=== PATIENT | female | born 1985 | race Caucasian/White ===

== ENCOUNTER 2016-09-30 14:55 | Emergency (ER) | payer SELFPAY ==
[2016-09-30] MEDS ORDERED: IBUPROFEN 600 MG TABLET PO ONE (15:06)
--- NOTE | 2016-09-30 15:06 | ER Document Report ---
ED Medical Screen (RME) - General Stated Complaint: MOUTH PAIN Time seen by provider: 15:04 Mode of Arrival: Ambulatory Information source: Patient Notes: 31-year-old female presents to ED for left jaw pain for 3 days. She states that she has upper jaw left side pain. Last menstrual period 09/06/2016 I have greeted and performed a rapid initial assessment of this patient. A comprehensive ED assessment and evaluation of the patient, analysis of test results and completion of medical decision making process will be conducted by an additional ED providers. TRAVEL OUTSIDE OF THE [place] IN LAST 30 DAYS: No - Related Data Allergies/Adverse Reactions: No Known Allergies Allergy (Verified 09/30/16 15:03) Past Medical History - Past Medical History Cardiac Medical History: Reports: Hx Hypertension Neurological Medical History: Reports: Hx Migraine Renal/ Medical History: Denies: Hx Ectopic , Hx Ovarian Cysts Psychiatric Medical History: Reports: Hx Anxiety Past Surgical History: Reports: Hx Section - Immunizations Immunizations up to date: Yes Hx Diphtheria, Pertussis, Tetanus Vaccination: Yes
[2016-09-30 15:07] VITALS: BP 132/77
--- NOTE | 2016-09-30 16:33 | ER Document Report ---
ED General - General Chief Complaint: Mouth Problem Stated Complaint: MOUTH PAIN Mode of Arrival: Ambulatory Notes: This is a 31-year-old female with a history of hypertension that presents today with 3 day history of left upper maxillary pain. She describes pain as sharp 8 out of 10 in the morning with radiation to the left ear. She currently denies pain after giving a dose of ibuprofen here in the emergency department. Denies nausea vomiting fever or chills. Denies dysphagia and odynophagia. Denies shortness of breath. TRAVEL OUTSIDE OF THE [place] IN LAST 30 DAYS: No - Related Data Allergies/Adverse Reactions: No Known Allergies Allergy (Verified 09/30/16 15:03) Past Medical History - General Information source: Patient - Social History Smoking Status: Unknown if Ever Smoked Chew tobacco use (# tins/day): No Frequency of alcohol use: None Drug Abuse: None Family History: Reviewed & Not Pertinent Patient has suicidal ideation: No Patient has homicidal ideation: No - Past Medical History Cardiac Medical History: Reports: Hx Hypertension Neurological Medical History: Reports: Hx Migraine Renal/ Medical History: Denies: Hx Ectopic , Hx Ovarian Cysts, Hx Peritoneal Dialysis Psychiatric Medical History: Reports: Hx Anxiety Past Surgical History: Reports: Hx Section - Immunizations Immunizations up to date: Yes Hx Diphtheria, Pertussis, Tetanus Vaccination: Yes Review of Systems - Review of Systems Constitutional: denies: Chills, Fever EENT: See HPI Cardiovascular: No symptoms reported Respiratory: No symptoms reported Gastrointestinal: No symptoms reported Genitourinary: No symptoms reported Female Genitourinary: No symptoms reported Musculoskeletal: No symptoms reported Skin: No symptoms reported Hematologic/Lymphatic: No symptoms reported Neurological/Psychological: No symptoms reported Physical Exam - Vital signs Vitals: Temp Pulse BP Pulse Ox 97.9 F 79 132/77 H 100 09/30/16 15:00 09/30/16 15:00 09/30/16 15:00 09/30/16 15:00 - General General appearance: Appears well In distress: None - HEENT Head: Normocephalic, Atraumatic Eyes: Normal Conjunctiva: Normal. No: Injected Tympanic membrane: Normal Sinus: Normal, Frontal - Nontender, Maxillary - Nontender Mucous membranes: Moist Teeth diagram: 1 - Dental caries 2 - Dental caries Pharynx: No: Erythema, Exudate, Peritonsillar abscess, Retropharyngeal abscess, Tonsillar hypertrophy Neck: No: Lymphadenopathy - Respiratory Respiratory status: No respiratory distress Breath sounds: Normal. No: Rales, Rhonchi, Stridor, Wheezing - Cardiovascular Rhythm: Regular Heart sounds: Normal auscultation - Abdominal Bowel sounds: Normal Tenderness: Nontender - Extremities General upper extremity: Normal inspection, Nontender General lower extremity: Normal inspection, Nontender - Neurological Cognition: Normal. No: Confused - Psychological Associated symptoms: Normal affect, Normal mood - Skin Skin Temperature: Warm Skin Moisture: Dry Skin Color: Normal Course - Re-evaluation Re-evalutation: 09/30/16 17:10 I gave the patient a list of referrals for dentists. She stated that she would follow-up with one of them and make an appointment. No pharyngeal abscesses or Ludwigs were noted. No pharyngeal erythema or tonsillar hypertrophy noted. Buccal mucosa was moist. She was given multiple opportunities to ask questions. She was advised to follow-up with dentist as soon as possible. - Vital Signs Vital signs: Temp Pulse Resp BP Pulse Ox 97.9 F 79 132/77 H 100 09/30/16 15:00 09/30/16 15:00 09/30/16 15:00 09/30/16 15:00 Discharge - Discharge Clinical Impression: Toothache Condition: Stable Disposition: HOME, SELF-CARE Instructions: Penicillin V K ([facility]) Additional Instructions: Return to the emergency department if symptoms worsen such as inability to swallow, trouble breathing, fever, etc. follow-up with primary care physician and dentist as soon as possible. Prescriptions: Penicillin V Potassium [Penicillin Vk 500 mg Tablet] 500 mg PO QID #40 tablet Referrals: [facility] [Provider Group] - Follow up as needed
== END 2016-09-30 17:00 | disposition home or self-care (01) ==
LOC: ER 14:55
DX: K02.9 Dental caries, unspecified (principal); K08.89 Other specified disorders of teeth and supporting structures; I10 Essential (primary) hypertension
CPT/HCPCS: 99282

== ENCOUNTER 2017-06-25 16:42 | Emergency (ER) | payer SELFPAY ==
[2017-06-25] MEDS ORDERED: MECLIZINE HCL 25 MG TABLET PO ONE (17:22)
--- NOTE | 2017-06-25 17:25 | ER Document Report ---
ED Medical Screen (RME) - General Chief Complaint: Dizziness Stated Complaint: FEVER,VOMITING Time Seen by Provider: 06/25/17 17:12 Notes: This 31-year-old female patient comes emergency room with 4 day history of dizziness made worse by turning on her side, looking about and looking up and bending over. She has had something like this several years ago which only lasted for a day. There is been some nausea. She does not know when her last menstrual period was, she states sometime last month. She is sexually active and is not on control. Brief exam shows left lateral gaze nystagmus. I have greeted and performed a rapid initial assessment of this patient. A comprehensive ED assessment and evaluation of the patient, analysis of test results and completion of the medical decision making process will be conducted by additional ED providers. TRAVEL OUTSIDE OF THE [place] IN LAST 30 DAYS: No - Related Data Allergies/Adverse Reactions: No Known Allergies Allergy (Verified 06/25/17 16:50) Past Medical History - Past Medical History Cardiac Medical History: Reports: Hx Hypertension Neurological Medical History: Reports: Hx Migraine Renal/ Medical History: Denies: Hx Ectopic , Hx Ovarian Cysts, Hx Peritoneal Dialysis Psychiatric Medical History: Reports: Hx Anxiety Past Surgical History: Reports: Hx Section - Immunizations Immunizations up to date: Yes Hx Diphtheria, Pertussis, Tetanus Vaccination: Yes Physical Exam - Vital signs Vitals: Temp Pulse Resp BP Pulse Ox 98.4 F 85 18 138/78 H 100 06/25/17 16:50 06/25/17 16:50 06/25/17 16:50 06/25/17 16:50 06/25/17 16:50 Course - Vital Signs Vital signs: Temp Pulse Resp BP Pulse Ox 98.4 F 85 18 138/78 H 100 06/25/17 16:50 06/25/17 16:50 06/25/17 16:50 06/25/17 16:50 06/25/17 16:50
--- NOTE | 2017-06-25 18:54 | ER Document Report ---
ED General - General Chief Complaint: Dizziness Stated Complaint: FEVER,VOMITING Time Seen by Provider: 06/25/17 17:12 Notes: Patient is a 31-year-old female with past medical history of untreated anxiety and depression who presents with 3 days of intermittent lightheadedness, dizziness and nausea. She notes that the symptoms are worse in the morning and 10 to improve throughout the day. She notes the positional changes occasionally seem to trigger the symptoms. She denies a history of similar symptoms in the past. She notes that her symptoms have resolved after receiving meclizine here in the emergency department. She has not seen a primary care doctor regarding today's concerns. She denies any focal weakness, numbness, or altered mental status. No fever or constitutional symptoms. Denies any alcohol or drug use. She does admit to be under significant stress due to recent deaths of multiple family members. TRAVEL OUTSIDE OF THE [place] IN LAST 30 DAYS: No - Related Data Allergies/Adverse Reactions: No Known Allergies Allergy (Verified 06/25/17 16:50) Past Medical History - General Information source: Patient - Social History Smoking Status: Former Smoker Chew tobacco use (# tins/day): No Frequency of alcohol use: None Drug Abuse: None Lives with: Spouse/Significant other Family History: Reviewed & Not Pertinent - Past Medical History Cardiac Medical History: Reports: Hx Hypertension Neurological Medical History: Reports: Hx Migraine Renal/ Medical History: Denies: Hx Ectopic , Hx Ovarian Cysts, Hx Peritoneal Dialysis Psychiatric Medical History: Reports: Hx Anxiety Past Surgical History: Reports: Hx Section - Immunizations Immunizations up to date: Yes Hx Diphtheria, Pertussis, Tetanus Vaccination: Yes Review of Systems - Review of Systems Notes: Constitutional: Negative for fever. HENT: Negative for sore throat. Eyes: Negative for visual changes. Cardiovascular: Negative for chest pain. Respiratory: Negative for shortness of breath. Gastrointestinal: Negative for abdominal pain, vomiting or diarrhea. Genitourinary: Negative for dysuria. Musculoskeletal: Negative for back pain. Skin: Negative for rash. Neurological: Negative for headaches, weakness or numbness. Positive for intermittent vertigo 10 point ROS negative except as marked above and in HPI. Physical Exam - Vital signs Vitals: Temp Pulse Resp BP Pulse Ox 98.4 F 85 18 138/78 H 100 06/25/17 16:50 06/25/17 16:50 06/25/17 16:50 06/25/17 16:50 06/25/17 16:50 Interpretation: Normal Notes: PHYSICAL EXAMINATION: GENERAL: Well-appearing, well-nourished and in no acute distress. HEAD: Atraumatic, normocephalic. EYES: Pupils equal round and reactive to light, extraocular movements intact, sclera anicteric, conjunctiva are normal. ENT: nares patent, oropharynx clear without exudates. Moist mucous membranes. NECK: Normal range of motion, supple without lymphadenopathy LUNGS: Breath sounds clear to auscultation bilaterally and equal. No wheezes rales or rhonchi. HEART: Regular rate and rhythm without murmurs ABDOMEN: Soft, nontender, normoactive bowel sounds. No guarding, no rebound. No masses appreciated. EXTREMITIES: Normal range of motion, no pitting or edema. No cyanosis. NEUROLOGICAL: Face symmetric. Tongue protrudes midline. Extraocular motions intact. Pupils are 2 mm and equally reactive. Normal speech, normal gait. 5 out of 5 strength in both the distal and proximal upper and lower extremities bilaterally. Sensation is grossly intact throughout. Finger to nose testing normal. Pronator drift normal. PSYCH: Normal mood, normal affect. SKIN: Warm, Dry, normal turgor, no rashes or lesions noted. Course - Re-evaluation Re-evalutation: 06/25/17 18:50 Patient presents with multiple vague complaints that did not appear to be concerning for any acute life-threatening pathology. Patient's main complaints appears to be for intermittent vertiginous symptoms although she denies any vertigo at the time of my evaluation. It sounds that the symptoms are intermittent and associated with nausea, likely related to her . Patient denies any abdominal pain, vaginal bleeding or discharge. No indication for further evaluation of her newly diagnosed here in the emergency department. I have encouraged her to follow-up in the women's clinic for management of her and provided resources for [facility] clinics if this is an undesired . Vitals are within normal limits at triage and at time of discharge. Physical examination is unremarkable. Patient is able to ambulate without ataxia, normal cerebellar testing. Patient has no risk factors for an acute CVA and has no exam or history to suggest this diagnosis. Patient has tolerated oral intake without difficulty. Patient was not noted to be in distress at any point during their ER visit. At this time, based on the reassuring evaluation, I do not suspect an acute OK, pulmonary embolus, aortic dissection, acute intra-abdominal pathology, stroke, or sepsis. Will discharge with return precautions and follow-up recommendations. Verbal discharge instructions given a the bedside and opportunity for questions given. Medication warnings reviewed. Patient is in agreement with this plan and has verbalized understanding of return precautions and the need for primary care follow-up in the next 24-72 hours. - Vital Signs Vital signs: Temp Pulse Resp BP Pulse Ox 98.4 F 66 18 123/78 100 06/25/17 16:50 06/25/17 19:21 06/25/17 19:21 06/25/17 19:21 06/25/17 19:21 - Laboratory Laboratory results interpreted by me: 06/25/17 17:31 Urine HCG, Qual POSITIVE H Discharge - Discharge Clinical Impression: Vertigo Qualifiers: Weeks of gestation: unspecified Qualified Code(s): Z34.90 - Encounter for supervision of normal , unspecified, unspecified trimester Condition: Good Disposition: HOME, SELF-CARE Additional Instructions: You were seen today for lightheadedness/dizziness. Your symptoms are likely related to your . Please follow closely with your primary care physician in the next 1-3 days. Return if you pass out, have additional episodes of lightheadedness, develop weakness/numbness, have persistent vomiting , chest pain, shortness of breath or any other symptoms that are concerning to you. Take meclizine as needed for lightheadedness or dizziness. Prescriptions: Meclizine HCl 25 mg PO Q6HP PRN #30 tablet PRN Reason: Referrals: FRANCISCO DE LA GARZA MD [Primary Care Provider] - Follow up as needed COLLINS VALENTIN MD [[facility]] - Follow up in 3-5 days
[2017-06-25 19:22] VITALS: BP 123/78
== END 2017-06-25 19:22 | disposition home or self-care (01) ==
LOC: ER 16:42
DX: R42 Dizziness and giddiness (principal); R50.9 Fever, unspecified; R11.10 Vomiting, unspecified; F41.9 Anxiety disorder, unspecified; F32.9 Major depressive disorder, single episode, unspecified; Z87.891 Personal history of nicotine dependence; Z34.90 Encounter for supervision of normal pregnancy, unspecified, unspecified trimester
CPT/HCPCS: 81025; 99284

== ENCOUNTER 2018-01-25 22:37 | Emergency (ER) | payer MEDICAID ==
[2018-01-25 22:59] VITALS: BP 121/81
[2018-01-25 23:07] LABS: APPEARANCE,URINE CLEAR; BILIRUBIN,URINE NEGATIVE (NEGATIVE); COLOR,URINE STRAW; GLUCOSE, URINE NEGATIVE (NEGATIVE); KETONES,URINE TRACE mg/dL (NEGATIVE); LEUKOCYTE ESTERASE,URINE NEGATIVE (NEGATIVE); NITRITE,URINE NEGATIVE (NEGATIVE); PROTEIN,URINE NEGATIVE (NEGATIVE); URINE SPECIFIC GRAVITY 1.004; UROBILINOGEN,URINE NEGATIVE mg/dL (<2.0)
--- NOTE | 2018-01-26 01:05 | ER Document Report ---
ED GI/ - General Chief Complaint: Abdominal Pain Stated Complaint: ABDOMINAL PAIN Time Seen by Provider: 01/26/18 00:54 Notes: Patient is a 32-year-old female that comes emergency department for chief complaint of lower abdominal pain that started yesterday. She states she thinks she might be , she is sexually active, she has not had a period since August, she had a miscarriage in July of last year. 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 She states she got nauseated and threw up this morning. She denies current nausea. She states pain is intermittent and crampy in nature. She denies trauma. She denies vaginal bleeding or discharge. She denies dysuria, flank pain. She denies any surgeries other than , she denies any past medical history otherwise. TRAVEL OUTSIDE OF THE [place] IN LAST 30 DAYS: No - Related Data Allergies/Adverse Reactions: No Known Allergies Allergy (Verified 06/25/17 16:50) Past Medical History - General Information source: Patient - Social History Smoking Status: Never Smoker Frequency of alcohol use: None Drug Abuse: None Lives with: Family Family History: Reviewed & Not Pertinent - Past Medical History Cardiac Medical History: Reports: Hx Hypertension Neurological Medical History: Reports: Hx Migraine Renal/ Medical History: Denies: Hx Ectopic , Hx Ovarian Cysts, Hx Peritoneal Dialysis Psychiatric Medical History: Reports: Hx Anxiety Past Surgical History: Reports: Hx Section - Immunizations Immunizations up to date: Yes Hx Diphtheria, Pertussis, Tetanus Vaccination: Yes Review of Systems - Review of Systems Constitutional: No symptoms reported EENT: No symptoms reported Cardiovascular: No symptoms reported Respiratory: No symptoms reported Gastrointestinal: See HPI Genitourinary: See HPI Female Genitourinary: See HPI Musculoskeletal: No symptoms reported Skin: No symptoms reported Hematologic/Lymphatic: No symptoms reported Neurological/Psychological: No symptoms reported Physical Exam - Vital signs Vitals: Temp Pulse BP Pulse Ox 98.2 F 90 121/81 100 01/25/18 22:58 01/25/18 22:58 01/25/18 22:58 01/25/18 22:58 Interpretation: Normal - General General appearance: Appears well, Alert - HEENT Head: Normocephalic, Atraumatic Eyes: Normal Pupils: PERRL - Respiratory Respiratory status: No respiratory distress Chest status: Nontender Breath sounds: Normal Chest palpation: Normal - Cardiovascular Rhythm: Regular Heart sounds: Normal auscultation Murmur: No - Abdominal Inspection: Normal Distension: No distension Bowel sounds: Normal Tenderness: Tender - Minimal generalized lower abdominal tenderness, nonspecific , no guarding Organomegaly: No organomegaly - Back Back: Normal, Nontender - Extremities General upper extremity: Normal inspection, Nontender, Normal color, Normal ROM , Normal temperature General lower extremity: Normal inspection, Nontender, Normal color, Normal ROM , Normal temperature, Normal weight bearing. No: Amol's sign - Neurological Neuro grossly intact: Yes Cognition: Normal Orientation: AAOx4 Kiana Coma Scale Eye Opening: Spontaneous Kiana Coma Scale Verbal: Oriented Kiana Coma Scale Motor: Obeys Commands Kiana Coma Scale Total: 15 Speech: Normal Motor strength normal: LUE, RUE, LLE, RLE Sensory: Normal - Psychological Associated symptoms: Normal affect, Normal mood - Skin Skin Temperature: Warm Skin Moisture: Dry Skin Color: Normal Course - Re-evaluation Re-evalutation: Patient reported vomiting at home, reported of lower abdominal cramping, however she is very well-appearing on exam, has no overt abdominal tenderness on exam, vital signs are unremarkable. Mild leukocytosis but this is nonspecific with patient's normal vital signs, normal exam. Offered pelvic examination but this was deferred. Urinalysis unremarkable. Positive test, sending for ultrasound because of reported pain. Ultrasound showing living intrauterine gestation at 16 weeks with no apparent complication. Results were discussed with patient. Patient provided copy of the report. She requests nausea medication and something for "heartburn", provided with Lexi Marin, she states she will follow-up with the health department, discussed return precautions, patient states satisfaction and agreement. - Vital Signs Vital signs: Temp Pulse Resp BP Pulse Ox 98.2 F 90 121/81 100 01/25/18 22:58 01/25/18 22:58 01/25/18 22:58 01/25/18 22:58 - Laboratory Result Diagrams: 01/26/18 01:15 01/26/18 01:15 Laboratory results interpreted by me: 01/25/18 01/26/18 01/26/18 22:48 01:15 01:15 WBC 14.0 H Hgb 11.1 L Hct 32.6 L Absolute Neutrophils 10.0 H Creatinine 0.48 L Glucose 124 H AST 11 L Beta HCG, Quant 89394.00 H Urine Ketones TRACE H Urine HCG, Qual POSITIVE H Discharge - Discharge Clinical Impression: Lower abdominal pain Condition: Stable Disposition: HOME, SELF-CARE Additional Instructions: You have a second trimester at just over 16 weeks. No visualized abnormality on ultrasound. Take, for pain, take the Zofran and Pepcid if needed for nausea and upper abdominal belching/heartburn symptoms, take vitamins, follow-up with the health department, call them tomorrow to set up your first appointment. Return if you worsen including fever, uncontrolled vomiting, severe abdominal pain, bleeding, or any other concerning symptoms. Prescriptions: Famotidine [Pepcid 20 mg Tablet] 20 mg PO BID #20 tablet Ondansetron [Zofran Odt 4 mg Tablet] 1 - 2 tab PO Q4H PRN #20 tab.rapdis PRN Reason: For Nausea/Vomiting
[2018-01-26 01:26] LABS: ABSOLUTE BASOPHILS # (AUTO) 0.1 10^3/uL (0.0-0.2); ABSOLUTE EOSINOPHILS # (AUTO) 0.1 10^3/uL (0.0-0.6); ABSOLUTE LYMPHOCYTES (AUTO) 3.3 10^3/uL (0.5-4.7); ABSOLUTE MONOCYTES (AUTO) 0.6 10^3/uL (0.1-1.4); BASOPHILS % (AUTO) 0.4 % (0-2); EOSINOPHILS % (AUTO) 0.6 % (0-6); HEMATOCRIT 32.6 % (36.0-47.0); HEMOGLOBIN 11.1 g/dL (12.0-15.5); LYMPHOCYTES % (AUTO) 23.6 % (13-45); MEAN CORPUSCULAR HEMOGLOBIN 29.8 pg (27.0-33.4); MEAN CORPUSCULAR HGB CONC 34.1 g/dL (32.0-36.0); MEAN CORPUSCULAR VOLUME 87 fl (80-97); MONOCYTES % (AUTO) 4.5 % (3-13); PLATELET COUNT 192 10^3/uL (150-450); RED BLOOD COUNT 3.73 10^6/uL (3.72-5.28); RED CELL DISTRIBUTION WIDTH 13.6 % (11.5-14.0); SEGMENTED NEUTROPHILS % (AUTO) 70.9 % (42-78); TOTAL CELLS COUNTED % (AUTO) 100 %
[2018-01-26 01:51] LABS: ALANINE AMINOTRANSFERASE 16 U/L (9-52); ALBUMIN 3.6 g/dL (3.5-5.0); ALKALINE PHOSPHATASE 56 U/L (38-126); ANION GAP 9 (5-19); ASPARTATE AMINO TRANSFERASE 11 U/L (14-36); BILIRUBIN,DIRECT 0.2 mg/dL (0.0-0.4); BILIRUBIN,TOTAL 0.2 mg/dL (0.2-1.3); BLOOD UREA NITROGEN 8 mg/dL (7-20); CALCIUM 9.3 mg/dL (8.4-10.2); CARBON DIOXIDE 25 mmol/L (22-30); CHLORIDE 106 mmol/L (98-107); GLUCOSE 124 mg/dL (75-110); POTASSIUM 3.7 mmol/L (3.6-5.0); SODIUM 139.8 mmol/L (137-145); TOTAL PROTEIN 6.4 g/dL (6.3-8.2)
--- NOTE | 2018-01-26 03:50 | RADIOLOGY REPORT (SQ) ---
EXAM DESCRIPTION: US GREATER THAN 14 WEEKS CLINICAL HISTORY: 32 years Female, lower abd pain, +HCG Comparison: None. TECHNIQUE: Transvaginal and transabdominal. LIMITATIONS: None. FINDINGS: EGA is 16w2d with BARBARA of 07/11/2018 EFW is 148g at not calculated% (Jozef) Cardiac activity: 158-bpm. LVP: 5.8-cm Placenta: Anterior. No evidence of abruption. No placenta previa. Presentation: Breech Cervical length: 2.9-cm 2.1 cm left ovary. Right ovary not discerned. Nabothian cysts. Anatomic survey: kidneys not well visualized. Else, normal survey of a four chambered heart, three-vessel cord, cord insertion, bladder, stomach, spine, intracranial structures, and upper/lower extremities. IMPRESSION: 1. Live fetus at 16w2d. 2. Limited anatomic survey. kidneys not well discerned.
[2018-01-26] MEDS ORDERED: ONDANSETRON ODT 4 MG TAB (6 TAB/ER DISP) PO PRN (04:05)
== END 2018-01-26 04:23 | disposition home or self-care (01) ==
LOC: ER 22:37
DX: O26.892 Other specified pregnancy related conditions, second trimester (principal); R10.30 Lower abdominal pain, unspecified; R12 Heartburn; O21.9 Vomiting of pregnancy, unspecified; O16.2 Unspecified maternal hypertension, second trimester; O99.112 Other diseases of the blood and blood-forming organs and certain disorders involving the immune mechanism complicating pregnancy, second trimester; D72.829 Elevated white blood cell count, unspecified; Z3A.16 16 weeks gestation of pregnancy; Z87.59 Personal history of other complications of pregnancy, childbirth and the puerperium
CPT/HCPCS: 36415; 76805; 80053; 81001; 81025; 84702; 85025; 86900; 86901; 93976; 99284

== ENCOUNTER 2018-02-18 23:54 | Emergency (ER) | payer MEDICAID ==
--- NOTE | 2018-02-19 00:45 | ER Document Report ---
ED General - General Chief Complaint: Blood Pressure Problem Stated Complaint: POSSIBLE HIGH BP Time Seen by Provider: 02/19/18 00:25 Mode of Arrival: Ambulatory Information source: Patient Notes: Patient presents to emergency department with complaint of high blood pressure. Patient reports that she has a history of hypertension and takes labetalol 100 mg 3 times daily. Patient reports that at home her blood pressure was 190/ 110. Patient did not take any additional medications in patients blood pressure is normal on arrival to emergency department. Patient denies any other symptoms at this time. TRAVEL OUTSIDE OF THE [place] IN LAST 30 DAYS: No - Related Data Allergies/Adverse Reactions: No Known Allergies Allergy (Verified 06/25/17 16:50) Past Medical History - General Information source: Patient - Social History Smoking Status: Never Smoker Frequency of alcohol use: None Drug Abuse: None Lives with: Family Family History: Reviewed & Not Pertinent - Past Medical History Cardiac Medical History: Reports: Hx Hypertension Neurological Medical History: Reports: Hx Migraine Renal/ Medical History: Denies: Hx Ectopic , Hx Ovarian Cysts, Hx Peritoneal Dialysis Psychiatric Medical History: Reports: Hx Anxiety Past Surgical History: Reports: Hx Section - Immunizations Immunizations up to date: Yes Hx Diphtheria, Pertussis, Tetanus Vaccination: Yes Review of Systems - Review of Systems Constitutional: No symptoms reported EENT: No symptoms reported Cardiovascular: No symptoms reported Respiratory: No symptoms reported Gastrointestinal: No symptoms reported Genitourinary: No symptoms reported Female Genitourinary: No symptoms reported Musculoskeletal: No symptoms reported Skin: No symptoms reported Hematologic/Lymphatic: No symptoms reported Neurological/Psychological: No symptoms reported Physical Exam - Vital signs Vitals: Temp Pulse Resp BP Pulse Ox 98.1 F 85 16 113/74 100 02/19/18 01:02 02/19/18 01:02 02/19/18 01:02 02/19/18 01:02 02/19/18 01:02 - Notes Notes: PHYSICAL EXAMINATION: GENERAL: Well-appearing, well-nourished and in no acute distress. HEAD: Atraumatic, normocephalic. EYES: Pupils equal round and reactive to light, extraocular movements intact, conjunctiva are normal. ENT: Nares patent, oropharynx clear without exudates. Moist mucous membranes. NECK: Normal range of motion, supple without lymphadenopathy LUNGS: Breath sounds clear to auscultation bilaterally and equal. No wheezes rales or rhonchi. HEART: Regular rate and rhythm without murmurs ABDOMEN: Soft, nontender, nondistended abdomen. No guarding, no rebound. No masses appreciated. Female : deferred Musculoskeletal: Normal range of motion, no pitting or edema. No cyanosis. NEUROLOGICAL: Cranial nerves grossly intact. Normal speech, normal gait. Normal sensory, motor exams PSYCH: Normal mood, normal affect. SKIN: Warm, Dry, normal turgor, no rashes or lesions noted. Course - Re-evaluation Re-evalutation: Patient is an otherwise healthy 32-year-old female presenting with complaint of high blood pressure prior to arrival. Patient reports that she has a history of hypertension and is 19 weeks . Patient states that she takes labetalol 100 mg 3 times daily and patient states that her blood pressure has been normal for the last several days. Patient's blood pressure is normal on arrival. Patient's blood pressure rechecked while I was in the room and is 129/ 87. Patient denies any symptoms. Patient reports that the main reason she came and she would like heart tones checked to ensure that her baby is okay. Will check heart tones and discharge patient. Patient has a follow -up already scheduled with her OBGYN for 3 days from now. - Vital Signs Vital signs: Temp Pulse Resp BP Pulse Ox 98.1 F 85 16 113/74 100 02/19/18 01:02 02/19/18 01:02 02/19/18 01:02 02/19/18 01:02 02/19/18 01:02 Discharge - Discharge Clinical Impression: Hypertension Qualifiers: Hypertension type: unspecified Qualified Code(s): I10 - Essential (primary) hypertension Condition: Stable Disposition: HOME, SELF-CARE Additional Instructions: Your blood pressure reading today was normal. Continue to take your blood pressure medication as prescribed. Follow-up with your SR. [employer] this week.
[2018-02-19 01:03] VITALS: BP 113/74
== END 2018-02-19 01:03 | disposition home or self-care (01) ==
LOC: ER 23:54
DX: O10.912 Unspecified pre-existing hypertension complicating pregnancy, second trimester (principal); Z3A.19 19 weeks gestation of pregnancy
CPT/HCPCS: 99283

== ENCOUNTER 2018-05-03 22:04 | Emergency (ER) | payer MEDICAID ==
[2018-05-03 22:18] VITALS: BP 132/88
--- NOTE | 2018-05-03 22:49 | ER Document Report ---
ED Medical Screen (RME) - General Chief Complaint: Palpitations Stated Complaint: DIARRHEA Time Seen by Provider: 05/03/18 22:43 Mode of Arrival: Ambulatory Information source: Patient Notes: Patient is a 32-year-old female who presents with chief complaint of episode of tachycardia, diaphoresis and shakiness that started at 8:30 PM tonight.. Patient reports that she is approximately 30 weeks . Patient reports history of one functioning kidney and hypertension. Exam: Heart sounds S1-S2, normal rate and rhythm. Patient alert and oriented 3. Lung sounds clear to auscultation bilaterally. I have greeted and performed a rapid initial assessment of this patient. A comprehensive ED assessment and evaluation of the patient, analysis of test results and completion of the medical decision making process will be conducted by additional ED providers. Dictation of this chart was performed using voice recognition software; therefore, there may be some unintended grammatical errors. TRAVEL OUTSIDE OF THE [place] IN LAST 30 DAYS: No - Related Data Allergies/Adverse Reactions: No Known Allergies Allergy (Verified 06/25/17 16:50) Past Medical History - Social History Chew tobacco use (# tins/day): No Frequency of alcohol use: None Drug Abuse: None - Past Medical History Cardiac Medical History: Reports: Hx Hypertension Neurological Medical History: Reports: Hx Migraine Renal/ Medical History: Denies: Hx Ectopic , Hx Ovarian Cysts, Hx Peritoneal Dialysis Psychiatric Medical History: Reports: Hx Anxiety Past Surgical History: Reports: Hx Section - Immunizations Immunizations up to date: Yes Hx Diphtheria, Pertussis, Tetanus Vaccination: Yes Physical Exam - Vital signs Vitals: Temp Pulse Resp BP Pulse Ox 97.8 F 85 18 132/88 H 99 05/03/18 22:04 05/03/18 22:04 05/03/18 22:04 05/03/18 22:04 05/03/18 22:04 Course - Vital Signs Vital signs: Temp Pulse Resp BP Pulse Ox 97.8 F 85 18 132/88 H 99 05/03/18 22:04 05/03/18 22:04 05/03/18 22:04 05/03/18 22:04 05/03/18 22:04
[2018-05-03 23:51] LABS: APPEARANCE,URINE SLIGHTLY-CLOUDY; BILIRUBIN,URINE NEGATIVE (NEGATIVE); COLOR,URINE STRAW; GLUCOSE, URINE NEGATIVE (NEGATIVE); KETONES,URINE NEGATIVE (NEGATIVE); LEUKOCYTE ESTERASE,URINE NEGATIVE (NEGATIVE); NITRITE,URINE NEGATIVE (NEGATIVE); PROTEIN,URINE NEGATIVE (NEGATIVE); URINE SPECIFIC GRAVITY 1.006; UROBILINOGEN,URINE NEGATIVE mg/dL (<2.0)
[2018-05-03 23:55] LABS: ALANINE AMINOTRANSFERASE 24 U/L (9-52); ALBUMIN 3.4 g/dL (3.5-5.0); ALKALINE PHOSPHATASE 90 U/L (38-126); ANION GAP 9 (5-19); ASPARTATE AMINO TRANSFERASE 20 U/L (14-36); BILIRUBIN,DIRECT 0.2 mg/dL (0.0-0.4); BILIRUBIN,TOTAL 0.3 mg/dL (0.2-1.3); BLOOD UREA NITROGEN 8 mg/dL (7-20); CARBON DIOXIDE 21 mmol/L (22-30); CHLORIDE 106 mmol/L (98-107); GLUCOSE 87 mg/dL (75-110); SODIUM 136.2 mmol/L (137-145); TOTAL PROTEIN 6.4 g/dL (6.3-8.2)
--- NOTE | 2018-05-04 02:35 | ER Document Report ---
ED General - General Chief Complaint: Palpitations Stated Complaint: DIARRHEA Time Seen by Provider: 05/03/18 22:43 Mode of Arrival: Ambulatory Notes: Patient is a 32-year-old female currently 30 weeks who presents with an episode of lightheadedness, shakiness as well as having had 2 episodes of diarrhea earlier today. The patient reports that the episode of lightheadedness and shakiness started after the diarrheal episodes. She states that she now feels completely fine after taking large amounts of oral fluid. Denies history of similar symptoms in the past. She has not had any vomiting, abdominal pain, vaginal bleeding, vaginal discharge, continues to note normal movement. She has not seen her general doctor regarding today's concerns. Nothing was noted to trigger her symptoms. TRAVEL OUTSIDE OF THE [place] IN LAST 30 DAYS: No - Related Data Allergies/Adverse Reactions: No Known Allergies Allergy (Verified 06/25/17 16:50) Past Medical History - General Information source: Patient - Social History Smoking Status: Never Smoker Chew tobacco use (# tins/day): No Frequency of alcohol use: None Drug Abuse: None Lives with: Family Family History: Reviewed & Not Pertinent Patient has suicidal ideation: No Patient has homicidal ideation: No - Past Medical History Cardiac Medical History: Reports: Hx Hypertension Neurological Medical History: Reports: Hx Migraine Renal/ Medical History: Denies: Hx Ectopic , Hx Ovarian Cysts, Hx Peritoneal Dialysis Psychiatric Medical History: Reports: Hx Anxiety Past Surgical History: Reports: Hx Section - Immunizations Immunizations up to date: Yes Hx Diphtheria, Pertussis, Tetanus Vaccination: Yes Review of Systems - Review of Systems Notes: Constitutional: Negative for fever. HENT: Negative for sore throat. Eyes: Negative for visual changes. Cardiovascular: Positive for lightheadedness and palpitations Respiratory: Negative for shortness of breath. Gastrointestinal: Negative for abdominal pain, positive for diarrhea Genitourinary: Negative for dysuria. Musculoskeletal: Negative for back pain. Skin: Negative for rash. Neurological: Negative for headaches, weakness or numbness. 10 point ROS negative except as marked above and in HPI. Physical Exam - Vital signs Vitals: Temp Pulse Resp BP Pulse Ox 97.8 F 85 18 132/88 H 99 05/03/18 22:04 05/03/18 22:04 05/03/18 22:04 05/03/18 22:04 05/03/18 22:04 Interpretation: Normal Notes: PHYSICAL EXAMINATION: GENERAL: Well-appearing, well-nourished and in no acute distress. HEAD: Atraumatic, normocephalic. EYES: Pupils equal round and reactive to light, extraocular movements intact, sclera anicteric, conjunctiva are normal. ENT: nares patent, oropharynx clear without exudates. Moderately dry mucous membranes. NECK: Normal range of motion, supple without lymphadenopathy LUNGS: Breath sounds clear to auscultation bilaterally and equal. No wheezes rales or rhonchi. HEART: Regular rate and rhythm without murmurs ABDOMEN: Soft, gravid uterus, nontender, normoactive bowel sounds. No guarding , no rebound. No masses appreciated. EXTREMITIES: Normal range of motion, no pitting or edema. No cyanosis. NEUROLOGICAL: No focal neurological deficits. Moves all extremities spontaneously and on command. PSYCH: Normal mood, normal affect. SKIN: Warm, Dry, normal turgor, no rashes or lesions noted. Course - Re-evaluation Re-evalutation: 05/04/18 02:33 Patient presents with lightheadedness, nausea, diarrhea and feeling generally unwell now resolved. The patient reports that she had 2 episodes of diarrhea after which she became somewhat lightheaded consistent with probably becoming dehydrated particularly context of her being . At the time of evaluation she denies any symptoms of any kind. She has no abdominal pain by history or on exam. Labs unremarkable. Urinalysis likewise normal. I have a very low clinical suspicion for any acute pathology including appendicitis, dysrhythmia, pulmonary embolus, related pathology based on exam, vitals and history. Suspect likely foodborne or viral based diarrheal illness that has rapidly resolved as she has no longer had any diarrhea for the past several hours. At this time will discharge with return precautions and follow- up recommendations. Verbal discharge instructions given a the bedside and opportunity for questions given. Medication warnings reviewed. Patient is in agreement with this plan and has verbalized understanding of return precautions and the need for primary care follow-up in the next 24-72 hours. - Vital Signs Vital signs: Temp Pulse Resp BP Pulse Ox 97.8 F 85 18 132/88 H 99 05/03/18 22:04 05/03/18 22:04 05/03/18 22:04 05/03/18 22:04 05/03/18 22:04 - Laboratory Result Diagrams: 05/03/18 23:15 Laboratory results interpreted by me: 05/03/18 23:15 Sodium 136.2 L Carbon Dioxide 21 L Albumin 3.4 L - EKG Interpretation by Me Additional EKG results interpreted by me: 05/04/18 04:01 Sinus rhythm. Rate 81. No ST elevations or depressions. QTC is 441. Discharge - Discharge Clinical Impression: Nausea, Dehydration Diarrhea Qualifiers: Diarrhea type: presumed infectious Qualified Code(s): R19.7 - Diarrhea, unspecified Condition: Good Disposition: HOME, SELF-CARE Additional Instructions: Your symptoms are likely due to a viral illness. Continue to stay hydrated with plenty of solution such as Gatorade or Pedialyte. Please return if you develop severe abdominal pain, pass out, become unable to tolerate any oral fluids for 12 more hours, or any other symptoms that are concerning to you. Follow-up closely with your general doctor or OB within the next 24-48 hours regarding today's emergency room visit.
--- NOTE | 2018-05-04 07:38 | EKG REPORT ---
SEVERITY:- NORMAL ECG - SINUS RHYTHM : Confirmed by: Lee Zhong MD 04-May-2018 07:37:28
== END 2018-05-04 02:43 | disposition home or self-care (01) ==
LOC: ER 22:04
DX: O26.893 Other specified pregnancy related conditions, third trimester (principal); R19.7 Diarrhea, unspecified; R11.0 Nausea; R00.2 Palpitations; O99.283 Endocrine, nutritional and metabolic diseases complicating pregnancy, third trimester; E86.0 Dehydration; R42 Dizziness and giddiness; O16.3 Unspecified maternal hypertension, third trimester; Z3A.30 30 weeks gestation of pregnancy
CPT/HCPCS: 36415; 80053; 81001; 93005; 93010; 99285

== ENCOUNTER 2018-05-15 18:32 | Outpatient (CLI) | payer MEDICAID ==
[2018-05-15] MEDS ORDERED: RINGERS SOLUTION,LACTATED 1,000 ML IV PRN (19:10)
[2018-05-15] MEDS ORDERED: RINGERS SOLUTION,LACTATED 1,000 ML IV ONE (19:10)
[2018-05-15] MEDS ORDERED: BETAMET ACET/BETAMET NA INJ 6 MG/1 ML IM SCH (19:15)
[2018-05-15] MEDS ORDERED: BETAMET ACET/BETAMET NA INJ 6 MG/1 ML ONE (19:17)
[2018-05-15 19:37] LABS: APPEARANCE,URINE CLEAR; BILIRUBIN,URINE NEGATIVE (NEGATIVE); COLOR,URINE STRAW; GLUCOSE, URINE NEGATIVE (NEGATIVE); KETONES,URINE 20 mg/dL (NEGATIVE); LEUKOCYTE ESTERASE,URINE NEGATIVE (NEGATIVE); NITRITE,URINE NEGATIVE (NEGATIVE); PROTEIN,URINE NEGATIVE (NEGATIVE); URINE SPECIFIC GRAVITY 1.005; UROBILINOGEN,URINE NEGATIVE mg/dL (<2.0)
[2018-05-15 20:00] LABS: URINE AMPHETAMINES SCREEN NEGATIVE; URINE BARBITURATES SCREEN NEGATIVE; URINE BENZODIAZEPINES SCREEN NEGATIVE; URINE COCAINE SCREEN NEGATIVE; URINE MARIJUANA (THC) SCREEN NEGATIVE; URINE METHADONE SCREEN NEGATIVE; URINE PHENCYCLIDINE SCREEN NEGATIVE
== END 2018-05-15 23:17 | disposition home or self-care (01) ==
LOC: LC 18:32
PROVIDERS: ATTEND Student in an Organized Health Care Education/Training Program
PROC: 4A1HXCZ Monitoring of Products of Conception, Cardiac Rate, External Approach (ICD-10-PCS; principal; 2018-05-15)
DX: O47.03 False labor before 37 completed weeks of gestation, third trimester (principal); Z3A.32 32 weeks gestation of pregnancy
CPT/HCPCS: 59025; 96372; 81001; 80307; J0702

== ENCOUNTER 2018-06-06 16:56 | Outpatient (CLI) | payer MEDICAID ==
[2018-06-06 17:48] LABS: APPEARANCE,URINE SLIGHTLY-CLOUDY; BILIRUBIN,URINE NEGATIVE (NEGATIVE); COLOR,URINE COLORLESS; GLUCOSE, URINE NEGATIVE (NEGATIVE); KETONES,URINE NEGATIVE (NEGATIVE); LEUKOCYTE ESTERASE,URINE MODERATE (NEGATIVE); NITRITE,URINE NEGATIVE (NEGATIVE); PROTEIN,URINE NEGATIVE (NEGATIVE); URINE SPECIFIC GRAVITY 1.003; UROBILINOGEN,URINE NEGATIVE mg/dL (<2.0)
[2018-06-06] MEDS ORDERED: PENICILLIN G-K 5 MILLION UNIT VIAL ONE (17:58)
[2018-06-06 18:05] LABS: URINE AMPHETAMINES SCREEN NEGATIVE; URINE BARBITURATES SCREEN NEGATIVE; URINE BENZODIAZEPINES SCREEN NEGATIVE; URINE COCAINE SCREEN NEGATIVE; URINE MARIJUANA (THC) SCREEN NEGATIVE; URINE METHADONE SCREEN NEGATIVE; URINE PHENCYCLIDINE SCREEN NEGATIVE
--- NOTE | 2018-06-06 18:17 | PDOC TRANSFER SUMMARY ---
General Admission Date/PCP: 06/06/18 17:49 Admission Date: 06/06/18 Transfer Date: 06/06/18 Accepting Facility: [facility] Accepting Physician: Dr. 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 Probable location of pelvic kidney is retroperitoneal - however unknown location of ureter for pelvic kidney and complicated by prior section and scar tissue. Reviewed PPROM and need for C/S with BTL (pt desires BTL) and reviewed with Dr. Hernández with [facility] that we do not have Urology at this hospital. MFM agreed with recommendation for transfer to [facility]. Reviewed with patient regtarding concerns and she agrees for transfer is in her best interests. Need for availability of Urology reviewed with patient and family. (2) premature rupture of membranes (PPROM) with unknown onset of labor Is this a current diagnosis for this admission?: Yes Diagnosis Summary: PCN for PPROM. GBS collected. Not in labor with rare contractions. PPROM at approx 1700 - clear fluid. - Transfer Medications Home Medications: Labetalol HCl 1 tab PO TID 06/06/18 Vits96/Iron Fum/Folic [ Tablet] 1 tab PO DAILY 06/06/18 Transfer Medications: PCN Procardia 10mg po x 1 and then repeat for 2 more doses q 15 minutes for a total of 30mg - Allergies Allergies/Adverse Reactions: No Known Allergies Allergy (Verified 06/06/18 17:08) - Diet/Activity Discharge Diet: As Tolerated Discharge Activity: Activity As Tolerated Hospital Course Hospital Course: 32yo at 35+0ega by US not c/w LMP presents with PPROM at 1700 with clear fluid. Pt with h/o section and known uterine and renal anomaly. 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 No kidney on left per imaging. Pt with HTN on labetolol. H/ o failed VAVD with 5#8oz baby requiring initial section. Not in active labor. GBS unknown. PCN given due to 35wks gestation. H/o GBS positive in 2014. Physical Exam Vital Signs: Intake & Output 06/05/18 06/06/18 06/07/18 06:59 06:59 06:59 Weight 69.6 kg General appearance: PRESENT: no acute distress, well-developed, well-nourished Respiratory exam: PRESENT: clear to auscultation wilmar. ABSENT: rales, rhonchi, wheezes Cardiovascular exam: PRESENT: RRR. ABSENT: diastolic murmur, rubs, systolic murmur Pulses: PRESENT: normal dorsalis pedis pul Vascular exam: PRESENT: normal capillary refill GI/Abdominal exam: PRESENT: normal bowel sounds, soft. ABSENT: distended, guarding, mass, organolmegaly, rebound, tenderness Rectal exam: PRESENT: deferred Extremities exam: PRESENT: full ROM. ABSENT: calf tenderness, clubbing, pedal edema Neurological exam: PRESENT: alert, awake, oriented to person, oriented to place , oriented to time, oriented to situation, CN II-XII grossly intact. ABSENT: motor sensory deficit Psychiatric exam: PRESENT: appropriate affect, normal mood. ABSENT: homicidal ideation, suicidal ideation Skin exam: PRESENT: dry, intact, warm. ABSENT: cyanosis, rash Additional comments: cvx closed/th/hi CAT I FHR Tracing rare ctx not feeling them Results Laboratory Results: 06/06/18 17:05 Urine Color COLORLESS Urine Appearance SLIGHTLY-CLOUDY Urine pH 6.0 Ur Specific [place] 1.003 Urine Protein NEGATIVE Urine Glucose (UA) NEGATIVE Urine Ketones NEGATIVE Urine Blood NEGATIVE Urine Nitrite NEGATIVE Ur Leukocyte Esterase MODERATE H Urine WBC (Auto) 4 Urine RBC (Auto) 1 Status: Imported from PACS Plan Discharge Plan: Transfer to [facility] due to non availability of Uroloyg at our facility
[2018-06-06] MEDS ORDERED: NIFEDIPINE 10 MG CAPSULE ONE (18:21)
[2018-06-06] MEDS ORDERED: NIFEDIPINE 10 MG CAPSULE PO ONE ×2 (18:30→20:35)
[2018-06-06] MEDS ORDERED: PENICILLIN G POTASSIUM 5,000,000 UNIT in DEXTROSE 5%-WATER 100 ML IV ONE (20:35)
== END 2018-06-06 20:24 | disposition short-term general hospital (02) ==
LOC: LC 16:56 → LR 17:49 → UNDOADMIN 17:49 → LC 20:24
PROVIDERS: ATTEND Student in an Organized Health Care Education/Training Program
PROC: 4A1HXCZ Monitoring of Products of Conception, Cardiac Rate, External Approach (ICD-10-PCS; principal; 2018-06-06)
DX: O42.913 Preterm premature rupture of membranes, unspecified as to length of time between rupture and onset of labor, third trimester (principal); O14.93 Unspecified pre-eclampsia, third trimester; O34.219 Maternal care for unspecified type scar from previous cesarean delivery; Z3A.35 35 weeks gestation of pregnancy
CPT/HCPCS: 59025; 81001; 87081; 80307; 84112; J3490; J2540